=== PATIENT | male | born 1955 | race Caucasian/White ===

== ENCOUNTER 2023-04-26 09:52 | Outpatient (CLI) | payer MEDICARE, BC, SELFPAY ==
[2023-04-26 16:48] LABS: Alanine Aminotransferase* 69 U/L (4-50)
== END 2023-04-26 09:53 | disposition home or self-care (01) ==
PROVIDERS: PCP Family Medicine; Visit Provider Family Medicine
DX: E78.5 Hyperlipidemia, unspecified; I10 Essential (primary) hypertension; E11.9 Type 2 diabetes mellitus without complications; C61 Malignant neoplasm of prostate
CPT/HCPCS: 80048; 80061; 84153; 84460

== ENCOUNTER 2023-08-16 15:14 | Outpatient (CLI) | payer MEDICARE, BC, SELFPAY | END 2023-08-16 15:15 | disposition home or self-care (01) | PROVIDERS: PCP Family Medicine; Visit Provider Family Medicine | DX: I10 Essential (primary) hypertension (principal) | CPT/HCPCS: 84132 ==

== ENCOUNTER 2024-05-24 08:14 | Outpatient (CLI) | payer MEDICARE, SELFPAY | END 2024-05-24 08:15 | disposition home or self-care (01) | PROVIDERS: PCP Family Medicine; Visit Provider Family Medicine | DX: I10 Essential (primary) hypertension (principal); E78.2 Mixed hyperlipidemia; C61 Malignant neoplasm of prostate; E11.9 Type 2 diabetes mellitus without complications; F41.9 Anxiety disorder, unspecified | CPT/HCPCS: 84153; 84460 ==

== ENCOUNTER 2024-08-14 08:39 | Outpatient (CLI) | payer MEDICARE, SELFPAY | END 2024-08-14 08:40 | disposition home or self-care (01) | PROVIDERS: PCP Family Medicine; Visit Provider Family Medicine | DX: I10 Essential (primary) hypertension (principal); E78.2 Mixed hyperlipidemia; E11.9 Type 2 diabetes mellitus without complications; C61 Malignant neoplasm of prostate; F33.2 Major depressive disorder, recurrent severe without psychotic features; K21.9 Gastro-esophageal reflux disease without esophagitis; F41.9 Anxiety disorder, unspecified | CPT/HCPCS: 80048; 80061; 84153; 84460; 85025 ==

== ENCOUNTER 2025-04-18 10:01 | Outpatient (CLI) | payer MEDICARE, SELFPAY | END 2025-04-18 10:02 | disposition home or self-care (01) | LOC: FBOREF 10:02 | PROVIDERS: PCP Family Medicine; Visit Provider Family Medicine | DX: I10 Essential (primary) hypertension (principal) | CPT/HCPCS: 80048 ==

== ENCOUNTER 2025-08-23 10:24 | Outpatient (CLI) | payer MEDICARE, SELFPAY | END 2025-08-23 10:25 | disposition home or self-care (01) | PROVIDERS: PCP Family Medicine; Visit Provider Family Medicine | DX: E11.9 Type 2 diabetes mellitus without complications (principal); E78.2 Mixed hyperlipidemia; I10 Essential (primary) hypertension; Z85.46 Personal history of malignant neoplasm of prostate; Z79.4 Long term (current) use of insulin; Z12.5 Encounter for screening for malignant neoplasm of prostate | CPT/HCPCS: 80061; 80076; 82043; 82570; 84153; 84550 ==